=== PATIENT | male | born 1960 | race Caucasian/White ===

== ENCOUNTER 2016-09-23 14:51 | Emergency (ER) | payer MEDICARE, OTHER ==
[~2016-09-23] VITALS: Ht 160 cm; Wt 83.2 kg
[~2016-09-23 14:51] MED LIST: ALBU8.5H IH; ALPR0.5T8 PO; CITA20TA9 PO; FLUT16H NASAL; GLIP10TA9 PO; GUAI118S13 PO; IPRA4AER IH; METF500T4 PO; MONT10TA21 PO; OMEP20TA86 PO; P-EP-31 PO; RISP.5 PO; ROSU20 PO; SITA100 PO; TAMS0.4C32 PO; VENL-68 PO
[2016-09-23 15:06] LABS: GLUCOSE,POINT OF CARE 203 MG/DL (70-110)
[2016-09-23 15:55] VITALS: BP 141/91
[2016-09-23] MEDS ORDERED: PERTUSS(ACELL),DIPH,TET VAC/PF 0.5 ML VIAL IM ONE (16:15)
== END 2016-09-23 16:16 | disposition home or self-care (01) ==
LOC: EMS 14:53
DX: L03.011 Cellulitis of right finger (principal); L08.9 Local infection of the skin and subcutaneous tissue, unspecified; F41.9 Anxiety disorder, unspecified; J45.909 Unspecified asthma, uncomplicated; F32.9 Major depressive disorder, single episode, unspecified; E11.9 Type 2 diabetes mellitus without complications; E78.00 Pure hypercholesterolemia, unspecified; Z88.6 Allergy status to analgesic agent; Z88.0 Allergy status to penicillin
CPT/HCPCS: 82962; 90471; 90715; 99283

== ENCOUNTER 2016-11-18 02:48 | Emergency (ER) | payer MEDICARE, OTHER ==
[~2016-11-18] VITALS: Ht 162.6 cm; Wt 79.5 kg
[2016-11-18] MEDS ORDERED: INSU100C14 SQ (02:57)
[2016-11-18] MEDS ORDERED: LINA5TAB PO (02:57)
[2016-11-18 03:02] LABS: GLUCOSE,POINT OF CARE 207 MG/DL (70-110)
[2016-11-18 07:08] LABS: BASOPHILS % (AUTO) 0.3 % (0.0-2.0); EOSINOPHILS % (AUTO) 3.3 % (1.0-6.0); HEMOGLOBIN 15.1 g/dL (13.5-17.5); LYMPHOCYTES # (AUTO) 1.6 K/uL (1.0-4.8); LYMPHOCYTES % (AUTO) 34.2 % (22.0-44.0); MEAN CORPUSCULAR HEMOGLOBIN 30.5 pg (26.0-34.0); MEAN CORPUSCULAR HGB CONC 32.8 G/dL (31.0-37.0); MEAN CORPUSCULAR VOLUME 93 fL (80-100); MONOCYTES # (AUTO) 0.9 K/uL (0.1-1.0); MONOCYTES % (AUTO) 18.9 % (2.0-9.0); NEUTROPHILS % (AUTO) 43.3 % (40.0-70.0); PLATELET COUNT (AUTO) 171 K/uL (150-450); RED BLOOD CELL COUNT(AUTO) 4.95 MIL/uL (4.50-5.90); RED CELL DISTRIBUTION WIDTH 13.9 % (11.5-14.5); WHITE BLOOD COUNT (AUTO) 4.7 K/uL (4.5-11.0)
[2016-11-18 07:34] LABS: ANION GAP 5 mmol/L (8-16); CALCIUM, TOTAL 8.9 mg/dL (8.8-10.5); CARBON DIOXIDE 29 mmol/L (22-29); CHLORIDE 101 mmol/L (98-107); CREATININE 0.91 mg/dL (0.60-1.30); GLOMERULAR FILTR. RATE CALC > 60 mL/min (>60); POTASSIUM 3.9 mmol/L (3.5-5.1); SODIUM SERUM 135 mmol/L (136-145); UREA NITROGEN, BLOOD 18 mg/dL (7-18)
[2016-11-18 07:39] LABS: ALANINE AMINOTRANSFERASE 79 U/L (12-78); ALBUMIN 3.5 g/dL (3.4-5.0); ASPARTATE AMINOTRANSFERASE 36 U/L (15-37); BILIRUBIN,TOTAL 1.1 mg/dL (0.1-1.0); TOTAL PROTEIN, SERUM 6.5 g/dL (6.4-8.2)
[2016-11-18] MEDS ORDERED: LOPERAMIDE HCL 2 MG CAPSULE PO ONE (07:45)
[2016-11-18] MEDS ORDERED: FAMOTIDINE 20 MG TABLET PO ONE (07:45)
[2016-11-18 08:16] VITALS: BP 126/79
== END 2016-11-18 08:17 | disposition home or self-care (01) ==
LOC: EMS 02:49
DX: R10.32 Left lower quadrant pain (principal); R19.7 Diarrhea, unspecified; F41.9 Anxiety disorder, unspecified; F32.9 Major depressive disorder, single episode, unspecified; E11.9 Type 2 diabetes mellitus without complications; E78.00 Pure hypercholesterolemia, unspecified; J45.909 Unspecified asthma, uncomplicated; Z88.0 Allergy status to penicillin; Z88.6 Allergy status to analgesic agent; Z79.4 Long term (current) use of insulin
CPT/HCPCS: 82962; 99284

== ENCOUNTER 2017-08-29 01:27 | Emergency (ER) | payer MEDICARE, OTHER ==
[~2017-08-29] VITALS: Ht 162.6 cm; Wt 84.1 kg
[~2017-08-29 01:27] MED LIST changes: -ALBU8.5H IH; +ALBU8.5H8 IH; -GLIP10TA9 PO; -GUAI118S13 PO; +INSU100C14 SQ; +LINA5TAB PO; +OMEP20TA25 PO; -OMEP20TA86 PO; -P-EP-31 PO
[2017-08-29 01:42] LABS: GLUCOSE,POINT OF CARE 333 MG/DL (70-110)
[2017-08-29] MEDS ORDERED: HYDROCODONE/ACETAMINOPHEN 5-325 MG TABLET PO ONE (04:15)
[2017-08-29] MEDS ORDERED: DiphenhydrAMINE HCL 25 MG/10 ML ELIXIR UDCUP PO ONE (04:15)
[2017-08-29] MEDS ORDERED: DiphenhydrAMINE HCL 25 MG CAPSULE PO ONE (04:45)
[2017-08-29 05:16] VITALS: BP 133/83
[2017-08-29 05:43] LABS: GLUCOSE,POINT OF CARE 259 MG/DL (70-110)
== END 2017-08-29 05:55 | disposition home or self-care (01) ==
LOC: EMS 01:29
DX: J32.9 Chronic sinusitis, unspecified (principal); R51 Headache; E11.65 Type 2 diabetes mellitus with hyperglycemia; J45.909 Unspecified asthma, uncomplicated; E78.00 Pure hypercholesterolemia, unspecified; Z79.4 Long term (current) use of insulin; Z88.5 Allergy status to narcotic agent; Z88.0 Allergy status to penicillin
CPT/HCPCS: 70450; 82962; 99284

== ENCOUNTER 2017-11-06 12:51 | Emergency (ER) | payer MEDICARE, OTHER ==
[~2017-11-06] VITALS: Ht 162.6 cm; Wt 84.5 kg
[~2017-11-06 12:51] MED LIST changes: +CITA-106 PO; -CITA20TA9 PO; -LINA5TAB PO; +METF-444 PO; -METF500T4 PO; -SITA100 PO
[2017-11-06 13:13] LABS: GLUCOSE,POINT OF CARE 247 MG/DL (70-110)
[2017-11-06 15:44] VITALS: BP 142/100
== END 2017-11-06 16:54 | disposition home or self-care (01) ==
LOC: EMS 12:52
DX: J34.0 Abscess, furuncle and carbuncle of nose (principal); J45.909 Unspecified asthma, uncomplicated; E11.9 Type 2 diabetes mellitus without complications; E78.00 Pure hypercholesterolemia, unspecified; Z88.0 Allergy status to penicillin; Z88.5 Allergy status to narcotic agent; Z79.4 Long term (current) use of insulin
CPT/HCPCS: 99283

== ENCOUNTER 2018-06-18 12:36 | Emergency (ER) | payer MEDICARE, OTHER ==
[~2018-06-18] VITALS: Ht 162.6 cm; Wt 83.6 kg
[2018-06-18] MEDS ORDERED: PRED20 PO (12:55)
[2018-06-18] MEDS ORDERED: IBUP-2071 PO (12:55)
[2018-06-18 12:59] LABS: GLUCOSE,POINT OF CARE 154 MG/DL (70-110)
[2018-06-18 15:07] VITALS: BP 122/77
== END 2018-06-18 15:20 | disposition home or self-care (01) ==
LOC: EMS 12:37
DX: J32.9 Chronic sinusitis, unspecified (principal); E11.9 Type 2 diabetes mellitus without complications; E78.00 Pure hypercholesterolemia, unspecified; J45.909 Unspecified asthma, uncomplicated; F41.9 Anxiety disorder, unspecified; Z88.0 Allergy status to penicillin; Z88.5 Allergy status to narcotic agent; Z79.899 Other long term (current) drug therapy; Z79.4 Long term (current) use of insulin